=== PATIENT | female | born 1965 | race Two or more races ===

== ENCOUNTER 2017-09-12 05:57 | Day surgery (SDC) | payer BC ==
[~2017-09-12 05:57] MED LIST: Buffered Lidocaine 0.9% SYRIN* 5 ML/SYR SYRINGE INTRADERM ONE
[2017-09-12] MEDS ORDERED: Acetaminophen TAB* 325 MG PO ONE (06:00)
[2017-09-12] MEDS ORDERED: Dexamethasone IV* 4 MG/ML 1 ML (4 MG) IV SLOW PU ONE (06:00)
[2017-09-12] MEDS ORDERED: Famotidine IV* 10 MG/ML 2 ML (20 mg) IV ONE (06:00)
[2017-09-12] MEDS ORDERED: Famotidine IV* 10 MG/ML 2 ML (20 mg) ONE (06:11)
[2017-09-12] MEDS ORDERED: Ondansetron INJ* 2 MG/ML VIAL ONE ×3 (06:11→12:42)
[2017-09-12] MEDS ORDERED: Heparin VIAL(*) 5000 UNITS/ML VIAL (FIVE THOUSAND) ONE (06:11)
[2017-09-12] MEDS ORDERED: Dexamethasone IV* 4 MG/ML 1 ML (4 MG) ONE (06:11)
[2017-09-12] MEDS ORDERED: Scopolamine 1.5 mg* PATCH ONE ×2 (06:12→12:42)
[2017-09-12] MEDS ORDERED: Acetaminophen TAB* 325 MG ONE (06:12)
[2017-09-12] MEDS ORDERED: ceFAZolin 2 GM PREMIX (*) 2 GM/50 ML BAG IVPB ONE (06:12)
[2017-09-12] MEDS ORDERED: Lidocaine 1.5% EPI 1:200,000* 30 ML SDV ONE (07:14)
[2017-09-12] MEDS ORDERED: Midazolam* 1 MG/ML 2 ML VIAL (2 MG) ONE (07:18)
[2017-09-12] MEDS ORDERED: fentaNYL* 50 MCG/ML 2 ML VIAL (100 MCG VIAL) ONE ×2 (07:18→13:16)
[2017-09-12] MEDS ORDERED: Rocuronium* 10 MG/ML VIAL ONE (07:18)
[2017-09-12] MEDS ORDERED: Lidocaine 2% PF * 5 ML VIAL ONE ×2 (07:18→10:32)
[2017-09-12] MEDS ORDERED: HYDROcodone/ACETAMIN 5-325 MG* 1 TAB PO PRN (08:34)
[2017-09-12] MEDS ORDERED: oxyCODONE/Acetamin 5/325 MG* TAB PO PRN (08:34)
[2017-09-12] MEDS ORDERED: DiMENhydriNATE IV* 50 MG/ML VIAL IV PUSH PRN (08:34)
[2017-09-12] MEDS ORDERED: Ondansetron INJ* 2 MG/ML VIAL IV PRN (08:34)
[2017-09-12] MEDS ORDERED: Naloxone* 0.4 MG/ML 1 ML VIAL IV PRN (08:34)
[2017-09-12] MEDS ORDERED: diPHENhydraMINE IV* 50 MG/ML 1 ml VIAL (BENADRYL) IV PRN (08:34)
[2017-09-12] MEDS ORDERED: Scopolamine 1.5 mg* PATCH TRANSDERM PRN (08:34)
[2017-09-12] MEDS ORDERED: fentaNYL* 50 MCG/ML 2 ML VIAL (100 MCG VIAL) IV PRN (08:34)
[2017-09-12] MEDS ORDERED: Ibuprofen TAB* 600 MG PO PRN (08:34)
[2017-09-12] MEDS ORDERED: HYDROmorphone INJ* 1 MG/ML CARPUJECT SYRINGE IV PRN (08:34)
[2017-09-12] MEDS ORDERED: Propofol* 10 MG/ML 20 ML BTL IV PUSH ONE (08:36)
[2017-09-12] MEDS ORDERED: HYDROmorphone INJ* 1 MG/ML CARPUJECT SYRINGE ONE (09:14)
[2017-09-12] MEDS ORDERED: Propofol* 0 MG/0 ML BTL ONE (10:32)
[2017-09-12] MEDS ORDERED: oxyCODONE/Acetamin 5/325 MG* TAB ONE (13:13)
[2017-09-12 15:59] VITALS: BP 107/68
[2017-09-15] MEDS ORDERED: Scopolamine PATCH Remove* 1 NOTE MISC PATCH OFF ONE (08:35)
== END 2017-09-12 15:00 | disposition home or self-care (01) ==
LOC: OR 05:57
PROVIDERS: ATTEND Plastic Surgery
DX: N62 Hypertrophy of breast (principal); E03.9 Hypothyroidism, unspecified; E04.2 Nontoxic multinodular goiter; R73.03 Prediabetes; M54.2 Cervicalgia; M54.89 Other dorsalgia; Z68.34 Body mass index [BMI] 34.0-34.9, adult; R42 Dizziness and giddiness
CPT/HCPCS: 81025; 88305; A9270-GY; J0690; J1100; J1170; J1644; J2250; J2405; J2704; J3010